=== PATIENT | female | born 1975 | race Caucasian/White ===

== ENCOUNTER 2017-06-04 15:21 | Emergency (ER) | payer SELFPAY ==
[~2017-06-04] VITALS: Ht 154.9 cm; Wt 91.0 kg
[2017-06-04] MEDS ORDERED: FAMOTIDINE 20MG TABLET PO STA (15:34)
[2017-06-04] MEDS ORDERED: ONDANSETRON 4MG ODT PO ONE (15:45)
[2017-06-04] MEDS ORDERED: ACETAMINOPHEN 500MG TABLET PO ONE (15:45)
[2017-06-04 16:12] LABS: CLARITY URINE TURBID (CLEAR); COLOR URINE YELLOW (YELLOW); KETONES URINE NEGATIVE (NEGATIVE); LEUKOCYTE ESTERASE URINE NEGATIVE (NEGATIVE); NITRITE URINE NEGATIVE (NEGATIVE); OCCULT BLOOD URINE TRACE (NEGATIVE); PH URINE >=9.0 (4.5-8.0); PROTEIN URINE NEGATIVE (NEGATIVE); SPECIFIC GRAVITY URINE 1.016 (1.005-1.030); UROBILINOGEN URINE 0.2 E.U./dL (0.2-1.0)
[2017-06-04 16:48] LABS: BASOPHILS % 1.4 % (0.0-2.0); EOSINOPHILS % 0.8 % (0.0-5.0); HEMATOCRIT. 36.4 % (36.0-48.0); HEMOGLOBIN. 12.1 g/dL (12.0-16.0); LYMPHOCYTES % 20.7 % (20.0-50.0); MEAN CORPUSCULAR HEMOGLOBIN 27.3 pg (28.0-32.0); MEAN CORPUSCULAR VOLUME 82.4 fL (81.0-99.0); MEAN PLATELET VOLUME 7.1 fl (7.4-10.4); MONOCYTES % 6.1 % (2.0-8.0); PLATELET 351 x1000/uL (130-400); RED BLOOD CELL COUNT 4.42 mill/uL (4.2-5.4); RED CELL DISTRIBUTION WIDTH 15.6 % (11.6-14.6)
[2017-06-04 16:52] LABS: CHLORIDE 104 mEq/L (98-107)
[2017-06-04 16:55] LABS: PROTHROMBIN TIME 10.4 sec (9.4-11.6)
[2017-06-04] MEDS ORDERED: ONDANSETRON 4MG ODT PO NR (23:15)
[2017-06-04] MEDS ORDERED: FAMOTIDINE 20MG TABLET PO NR (23:15)
[2017-06-04] MEDS ORDERED: ACETAMINOPHEN 500MG TABLET PO NR (23:15)
[2017-06-05 02:20] VITALS: BP 112/78
== END 2017-06-05 02:23 | disposition home or self-care (01) ==
LOC: ER 15:21
DX: K29.00 Acute gastritis without bleeding (principal)
CPT/HCPCS: 36415; 76705; 80053; 81003; 81025; 83690; 85025; 85610; 99285; Q0162